=== PATIENT | male | born 2000 | race Caucasian/White ===

== ENCOUNTER 2019-05-14 15:58 | Emergency (ER) | payer OTHER ==
[~2019-05-14] VITALS: Ht 177.8 cm; Wt 108.9 kg
[2019-05-14] MEDS ORDERED: NORFLEX100MG PO (18:05)
[2019-05-14] MEDS ORDERED: DICLOFENAC SODI75 MG PO (18:05)
== END 2019-05-14 18:13 | disposition home or self-care (01) ==
LOC: ER 15:58
DX: S13.4XXA Sprain of ligaments of cervical spine, initial encounter (principal); M54.5 Low back pain; M54.6 Pain in thoracic spine; V49.88XA Car occupant (driver) (passenger) injured in other specified transport accidents, initial encounter; Y93.89 Activity, other specified; Y92.413 State road as the place of occurrence of the external cause; Y99.8 Other external cause status